=== PATIENT | male | born 1980 | race Caucasian/White ===

== ENCOUNTER 2017-05-19 14:04 | Emergency (ER) | payer OTHER ==
[~2017-05-19] VITALS: Ht 180.3 cm; Wt 90.7 kg
[2017-05-19 14:27] VITALS: BP 128/74
[2017-05-19] MEDS ORDERED: LIDOCAINE 2%/EPI 1:100,000 20 ML VIAL. IJ ONE (15:00)
--- NOTE | 2017-05-19 15:00 | PHYS DOC ---
Past History Past Medical History: No Pertinent History Past Surgical History: Other Alcohol Use: Occasionally Drug Use: None Adult General Chief Complaint Chief Complaint: LACERATION/AVULSION HPI HPI Patient is a 37 year old male who presents with finger laceration. 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 He is right handed. Tetanus up to date. No other injuries. Review of Systems Review of Systems Constitutional: Denies fever or chills Respiratory: Denies cough or shortness of breath Cardiovascular: Denies chest pain GI: Denies abdominal pain Integument: Reports laceration Neurologic: Denies headache Current Medications Current Medications Current Medications Medications (Trade) Dose Ordered Sig/Melissa Start Time Stop Time Status Last Admin Dose Admin Lidocaine/ Epinephrine (Xylocaine 2%-Epi 1:100,000) 20 ml 1X ONCE 05/19/17 15:00 05/19/17 15:01 05/19/17 14:48 20 ML Allergies Allergies Allergies Coded Allergies Type Severity Reaction Last Updated Verified No Known Drug Allergies 05/19/17 No Physical Exam Physical Exam Constitutional: Well developed, well nourished, no acute distress, non-toxic appearance. HENT: Normocephalic, atraumatic, bilateral external ears normal, oropharynx moist, nose normal. Eyes: conjunctiva normal, no discharge. Cardiovascular: no edema. Lungs & Thorax: no respiratory distress. Abdomen: nondistended. Skin: right long finger palmar aspect over distal phalanx there is 1.5 cm linear laceration. Extremities: right hand no bony tenderness, cap refill to long finger is < 2 sec , sensation intact to fingertip, intact ROM to DIP & PIP with flexion/extension. Neurologic: Alert and oriented X 3 Current Patient Data Vital Signs Vital Signs Date Time Temp Pulse Resp B/P (MAP) Pulse Ox O2 Delivery O2 Flow Rate FiO2 05/19/17 14:27 98.2 64 18 98 Room Air EKG EKG [] Radiology/Procedures Radiology/Procedures [] Course & Med Decision Making Course & Med Decision Making Pertinent Labs and Imaging studies reviewed. (See chart for details) The patient presents with finger laceration. irrigated by RN, tetanus UTD, repaired by me. Gave alumafoam splint, counseled regarding wound care, return in 1 week for suture removal. Come back for wound infection or otherwise worsening condition. Discharged home in stable condition. [] Dragon Disclaimer Dragon Disclaimer This chart was dictated in whole or in part using Voice Recognition software in a busy, high-work load, and often noisy Emergency Department environment. It may contain unintended and wholly unrecognized errors or omissions. Laceration Repair Lac Repair Indication: finger laceration Procedure: The patient was placed in the appropriate position and anesthesia around the laceration was achieved by injection of 2% lidocaine with epinephrine. The area was then irrigated with a copious amount of NS. The laceration was repaired using 5-0 ethilon, 2 simple interrupted sutures. The wound area was then dressed with gauze. Total repaired wound length: 1.5 cm. The patient tolerated the procedure well. Complications: none. Departure Departure: Impression: Primary Impression: Finger laceration Disposition: 01 HOME, SELF-CARE Condition: STABLE Referrals: HUSEYIN STANFORD DO, [facility] (PCP) Patient Instructions: Laceration Care, Adult, [id number] Additional Instructions: You were seen in the emergency department today for finger laceration. It was repaired with 2 sutures. Please keep clean and dry. Use the splint to promote healing and prevent further injury from excessive bending of your finger. Follow -up here or with primary care physician in 7 days for suture removal. Return to the emergency department for hot/red/swollen skin, fever, any otherwise worsening condition. MARY ALICE GUTIERREZ MD May 19, 2017 15:00
== END 2017-05-19 15:20 | disposition home or self-care (01) ==
LOC: ER 14:04
DX: S61.212A Laceration without foreign body of right middle finger without damage to nail, initial encounter (principal); W45.8XXA Other foreign body or object entering through skin, initial encounter; Y93.89 Activity, other specified; Y99.8 Other external cause status; Y92.89 Other specified places as the place of occurrence of the external cause
CPT/HCPCS: 12001; 99283-25

== ENCOUNTER 2019-01-26 09:43 | Emergency (ER) | payer OTHER ==
[~2019-01-26] VITALS: Ht 180.3 cm; Wt 86.2 kg
[2019-01-26 10:00] VITALS: BP 136/74
--- NOTE | 2019-01-26 10:22 | PHYS DOC ---
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 Patient states he didn't feel quite right yesterday but during the night last night he developed headache fever or sweats body aches and malaise. He did have a flu shot this year. He's had no nausea or vomiting. Nominal pain. He has not had a rash. He denies sore throat.[] Review of Systems Review of Systems Constitutional: Per history of present illness[] Eyes: Denies change in visual acuity, redness, or eye pain [] HENT: Denies nasal congestion or sore throat [] Respiratory: Reports a dry cough[] Cardiovascular: No additional information not addressed in HPI [] GI: Denies abdominal pain, nausea, vomiting, bloody stools or diarrhea [] : Denies dysuria or hematuria [] Musculoskeletal: Reports myalgias[] Integument: Denies rash or skin lesions [] Neurologic: Denies headache, focal weakness or sensory changes [] Endocrine: Denies polyuria or polydipsia [] All other systems were reviewed and found to be within normal limits, except as documented in this note. Allergies Allergies Allergies Coded Allergies Type Severity Reaction Last Updated Verified No Known Drug Allergies 05/19/17 No Physical Exam Physical Exam Constitutional: Well developed, well nourished, no acute distress, non-toxic appearance. [] HENT: Normocephalic, atraumatic, bilateral external ears normal, oropharynx moist, no oral exudates, nose normal. [] Eyes: PERRLA, EOMI, conjunctiva normal, no discharge. [] Neck: Normal range of motion, no tenderness, supple, no stridor. [] Cardiovascular:Heart rate regular rhythm, no murmur [] Lungs & Thorax: Bilateral breath sounds clear to auscultation [] Abdomen: Bowel sounds normal, soft, no tenderness, no masses, no pulsatile masses. [] Skin: Warm, dry, no erythema, no rash. [] Back: No tenderness, no CVA tenderness. [] Extremities: No tenderness, no cyanosis, no clubbing, ROM intact, no edema. [] Neurologic: Alert and oriented X 3, normal motor function, normal sensory function, no focal deficits noted. [] Psychologic: Affect normal, judgement normal, mood normal. [] Current Patient Data Vital Signs Vital Signs Date Time Temp Pulse Resp B/P (MAP) Pulse Ox O2 Delivery O2 Flow Rate FiO2 01/26/19 10:00 100.0 68 22 98 Room Air EKG EKG [] Radiology/Procedures Radiology/Procedures [] Course & Med Decision Making Course & Med Decision Making Pertinent Labs and Imaging studies reviewed. (See chart for details) [] Dragon Disclaimer Dragon Disclaimer This electronic medical record was generated, in whole or in part, using a voice recognition dictation system. Departure Departure: Impression: Primary Impression: Flu-like symptoms Disposition: HOME, SELF-CARE Condition: STABLE Referrals: HUSEYIN STANFORD DO, [facility] (PCP) Patient Instructions: Viral Infections Additional Instructions: Plenty of fluids throughout the day including Gatorade, Powerade or Pedialyte. Return to the emergency department with any new or concerning symptoms URIEL HOWELL DO Jan 26, 2019 10:22
[2019-01-26 10:52] LABS: INFLUENZA A PATIENT NEGATIVE (NEGATIVE); INFLUENZA B PATIENT NEGATIVE (NEGATIVE)
== END 2019-01-26 11:00 | disposition home or self-care (01) ==
LOC: ER 09:43
DX: R51 Headache (principal); R50.9 Fever, unspecified; M79.10 Myalgia, unspecified site; R53.81 Other malaise
CPT/HCPCS: 87804; 99283